=== PATIENT | male | born 1975 | race African-American/Black ===

== ENCOUNTER 2023-08-11 04:55 | Emergency (ER) | payer MEDICAID ==
[~2023-08-11] VITALS: Ht 182.9 cm; Wt 85.7 kg
[2023-08-11 04:58] VITALS: BP 150/96; PULSE 95; RESP 18; TEMP 98.2; O2SAT 98
[2023-08-11] MEDS: ONDANSETRON 4 MG TAB PO ONE (07:01)
[2023-08-11] MEDS: KETOROLAC 60 MG/2 ML VIAL IM ONE (07:02)
[2023-08-11 07:22] VITALS: O2SAT 98
[2023-08-11] MEDS ORDERED: NAPR-337 PO (07:46)
[2023-08-11 09:12] VITALS: BP 138/71; PULSE 90; RESP 16; TEMP 99; O2SAT 98
== END 2023-08-11 09:13 | disposition home or self-care (01) ==
LOC: MED 04:55
DX: M25.552 Pain in left hip (principal); R10.9 Unspecified abdominal pain; Z79.899 Other long term (current) drug therapy
CPT/HCPCS: 73502; 96372; 99283; J1885; Q0162